=== PATIENT | male | born 1985 | race Asian ===

== ENCOUNTER 2020-07-06 06:09 | Day surgery (SDC) | payer OTHER ==
--- NOTE | 2020-07-04 10:02 | NUR ---
PER [facility], STAFF AT DR. FLEMING'S OFFICE, PATIENT DID NOT HAVE LAB DRAWN AGAIN AT [facility] [place]; THE PATIENT'S LAB RESULTS ON 06/28/20 FAXED TO [facility] [place]
[~2020-07-06] VITALS: Ht 182.9 cm; Wt 76.7 kg
[2020-07-06 06:38] VITALS: BP 130/85
[2020-07-06 11:55] VITALS: BP 133/95
== END 2020-07-06 11:30 | disposition home or self-care (01) ==
LOC: DS 06:09 → OR 07:30 → DS 07:30
PROVIDERS: ATTEND Urology
DX: N20.1 Calculus of ureter (principal); Z20.822 Contact with and (suspected) exposure to COVID-19
CPT/HCPCS: C1758; C1769; C2625; J0696; J3010; Q9967; U0003